=== PATIENT | male | born 1950 | race Caucasian/White ===

== ENCOUNTER 2021-03-24 23:29 | Emergency (ER) | payer MEDICARE, OTHER ==
[2021-03-25] MEDS ORDERED: Acetaminophen 325 MG Tab PO ONE (00:56)
--- NOTE | 2021-03-25 01:00 | EDM.PDOC ---
ED HPI GENERAL MEDICAL PROBLEM - General Chief Complaint: Lower Extremity Injury/Pain Stated Complaint: PAIN IN RIGHT ANKLE Time Seen by Provider: 03/25/21 00:42 Source of Information: Reports: Patient, Family () History Limitations: Reports: No Limitations - History of Present Illness INITIAL COMMENTS - FREE TEXT/NARRATIVE: Mr. Eugene is a very pleasant 70-year-old gentleman who now presents the ED stating that he woke up with pain to the dorsal aspect of his right foot this morning. He believes that his right foot feels warmer to the touch than his left, or at least it did this morning. He has not seen any visible change to his foot, such as swelling or erythema. No known injury, although he was working on his tractor yesterday. No prior similar symptoms. The patient states that he has not iced or taken any medications to treat his symptoms today. The patient has a history of a left lower extremity DVT, on Coumadin. No history of gout. Here in the ED, the patient's initial BP is found to be elevated at 180/91, with slight tachycardia of 101 bpm. He is afebrile, saturating 93% on room air. Appears to be relatively comfortable, in no acute distress. Prior to this morning, the patient denies having a recent fever, chills, sore throat, ear pain, nasal or sinus congestion, cough, dyspnea, chest pain, palpitations, nausea, vomiting, constipation, diarrhea, abdominal pain, urinary symptoms, recent weight gain or weight loss, recent bloody bowel movements or black bowel movements, recent joint aches, headaches, or rashes. The patient's PCP is Dr. Ronaldo Jones. He has received 2 COVID vaccinations. Right Foot Pain Score (Numeric/FACES): 8 - Related Data Allergies Allergy/AdvReac Type Severity Reaction Status Date / Time No Known Allergies Allergy Verified 03/24/21 23:50 Home Meds: Home Meds Docusate Sodium [Colace] 200 mg PO BID 12/22/20 [History] Gabapentin [Neurontin] 300 mg PO BID 12/22/20 [History] Gabapentin [Neurontin] 600 mg PO BEDTIME 12/22/20 [History] Methylcellulose [Citrucel] 1,000 mg PO BID 12/22/20 [History] Multivitamin 1 tab PO DAILY 12/22/20 [History] Warfarin [Coumadin] 5 mg PO MOFR 12/22/20 [History] Warfarin [Coumadin] 7.5 mg PO SUTUWETHSA 12/22/20 [History] atorvaSTATin [Lipitor] 20 mg PO DAILY 12/22/20 [History] metFORMIN HCl [Metformin HCl] 1,000 mg PO DAILY 12/22/20 [History] Omeprazole 20 mg PO DAILY 03/24/21 [History] Past Medical History Cardiovascular History: Reports: Blood Clots/VTE/DVT (LLE DVT), High Cholesterol Gastrointestinal History: Reports: GERD, Hiatal Hernia Endocrine/Metabolic History: Reports: Diabetes, Type II, Obesity/BMI 30+ - Infectious Disease History Infectious Disease History: Reports: Novel Coronavirus - Past Surgical History HEENT Surgical History: Reports: Tonsillectomy GI Surgical History: Reports: Colonoscopy, EGD, Hernia, Inguinal (right) Social & Family History - Tobacco Use Tobacco Use Status *Q: Never Tobacco User Second Hand Smoke Exposure: No - Caffeine Use Caffeine Use: Reports: Coffee, Soda - Alcohol Use Alcohol Use History: Yes Alcohol Use Frequency: Rarely - Recreational Drug Use Recreational Drug Use: No - Living Situation & Occupation Living situation: Reports: , with Spouse, with Family (handicapped son often stays over) Occupation: Retired Review of Systems - Review of Systems Review Of Systems: Comprehensive ROS is negative, except as noted in HPI. ED EXAM, GENERAL - Physical Exam Exam: See Below Exam Limited By: No Limitations General Appearance: Alert, WD/WN, No Apparent Distress Extremities: Other (No visible abnormality to the patient's right foot, compared to the left, such as swelling, erythema, ecchymosis, abrasion, however, the patient has tenderness to palpation of the dorsal aspect of his foot, and that same pain is induced with passive plantar flexion of the foot, but not with passive ) Course - Vital Signs Last Recorded V/S: Last Vital Signs Temp 37.1 C 03/24/21 23:46 Pulse 101 H 03/24/21 23:46 Resp 16 03/24/21 23:46 BP 180/91 H 03/24/21 23:46 Pulse Ox 93 L 03/24/21 23:46 - Orders/Labs/Meds Orders: Active Orders 24 hr Category Date Time Status Foot Comp Min 3V Rt [CR] Stat Exams 03/25/21 00:55 Taken DME for Discharge [COMM] Stat Oth 03/25/21 01:42 Ordered Meds: Medications Discontinued Medications Generic Name Dose Route Start Last Admin Trade Name Joe PRElvis Reason Stop Dose Admin Acetaminophen 650 mg 03/25/21 00:56 03/25/21 01:05 Acetaminophen 325 Mg Tab PO 03/25/21 00:57 650 mg NOW ONE Administration - Re-Assessments/Exams Free Text/Narrative Re-Assessment/Exam: 03/25/21 00:57 As above, the patient woke this morning with right foot pain. He believes it felt warmer than his left foot, although he acknowledges there is no visible abnormality, such as erythema or swelling. No known injury to the foot. No prior similar instances. No home treatment. On examination, the patient is most tender to the dorsal aspect of his foot, made worse with passive plantarflexion, but not with passive dorsiflexion. Oddly, however, his pain is not made worse with active dorsiflexion, but it is with active plantarflexion. I have ordered x-rays to rule out a stress fracture. I placed an ice pack on his foot, and have ordered 600 mg of acetaminophen. I am avoiding NSAIDs, since the patient is on Coumadin. 03/25/21 01:41 4-view radiographs of the right foot appear to demonstrate mild to moderate degenerative joint disease, but no fractures or dislocations. Formal read per the Radiologist pending. I suspect that the patient has strained the extensor tendons in his foot when he was working yesterday. Gout is a possibility, however, the patient says that he has never had gout before, and in most cases, the first episode of gout prese nts as podagra, not whole-foot gout, and the patient definitely does not have podagra. In order to allow the patient to ambulate without continuously stressing his extensor tendons, I will place him into a CAM walker boot. He should ice and elevate his foot when out of the boot. He can take OTC acetaminophen for discomfort. If his symptoms do not improve with in a week or so, I would like him to follow-up with Dr. Segura. Departure - Departure Time of Disposition: 01:48 Disposition: Home, Self-Care 01 Condition: Good Clinical Impression: Extensor tendinitis of foot - Discharge Information *PRESCRIPTION DRUG MONITORING PROGRAM REVIEWED*: Not Applicable *COPY OF PRESCRIPTION DRUG MONITORING REPORT IN PATIENT DARRION: Not Applicable Instructions: Tendinitis, [id number] Referrals: Ronaldo Jones MD [Primary Care Provider] - Amaury Segura MD [Physician] - Forms: ED Department Discharge Additional Instructions: You were seen in the emergency room after waking up with right foot pain this morning. Work-up in the ER included x-rays of your right foot, which showed arthritic changes, but no broken bones or dislocations. Based on your history, physical exam, and ER x-rays, you have most likely strained the extensor tendons on the top of your foot. You have been fitted with a CAM walker boot. Wear this whenever you are walking around. We recommend that you ice and elevate your foot when you are out of the boot. We recommend you take [id number] acetaminophen (Tylenol) as needed for discomfort. If you are still having pain after about a week, please follow-up with the Orthopedic Surgeon Dr. Amaury Segura. If any other problems, please do not hesitate to return to the ER. Sepsis Event Note (ED) - Evaluation Sepsis Screening Result: No Definite Risk - Focused Exam Vital Signs: Vital Signs Temp Pulse Resp BP Pulse Ox 03/24/21 23:46 37.1 C 101 H 16 180/91 H 93 L - My Orders Last 24 Hours: My Active Orders 03/25/21 00:55 Foot Comp Min 3V Rt [CR] Stat 03/25/21 01:42 DME for Discharge [COMM] Stat - Assessment/Plan Last 24 Hours: My Active Orders 03/25/21 00:55 Foot Comp Min 3V Rt [CR] Stat 03/25/21 01:42 DME for Discharge [COMM] Stat
--- NOTE | 2021-03-25 08:46 | CR ---
Right foot: 4 views of the right foot were obtained. Comparison: No prior right foot exam is available. Small plantar spur is seen. Small spur is noted at the attachment of the Achilles tendon to the calcaneus. Slight vascular calcification is seen. Small erosion is noted within the distal second metatarsal head raising the possibility of previous gout. Mild degenerative change is seen within the first MTP joint. No acute fracture or dislocation is seen. Impression: 1. Calcaneal spurs. 2. Small erosion raising the possibility of previous gout within the distal second metatarsal. Please correlate. 3. Mild degenerative change as noted above. Diagnostic code #2
== END 2021-03-25 02:10 | disposition home or self-care (01) ==
LOC: JD.ED 23:29
DX: M77.42 Metatarsalgia, left foot (principal); E78.00 Pure hypercholesterolemia, unspecified; E11.9 Type 2 diabetes mellitus without complications; K21.9 Gastro-esophageal reflux disease without esophagitis; E66.9 Obesity, unspecified; Z68.41 Body mass index [BMI] 40.0-44.9, adult; Z86.718 Personal history of other venous thrombosis and embolism; Z79.01 Long term (current) use of anticoagulants; Z79.899 Other long term (current) drug therapy; Z86.16 Personal history of COVID-19
CPT/HCPCS: 73630; 99283; A9270; 99284

== ENCOUNTER 2021-04-23 07:05 | Day surgery (SDC) | payer MEDICARE, OTHER ==
[2021-04-23] MEDS: Polymyxin B/Trimethoprim 10 ML Bottle EYERT SCH ×4 (07:11→08:36)
[2021-04-23] MEDS: Brimonidine 0.2% Ophth Soln 5 ML Bottle EYERT SCH ×4 (07:15→08:36)
--- NOTE | 2021-04-23 07:16 | PCM.PREANE ---
Preanesthetic Assessment - Procedure Proposed Procedure: right eye cataract - Anesthesia/Transfusion/Family Hx Anesthesia History: Prior Anesthesia Without Reaction Family History of Anesthesia Reaction: No Transfusion History: No Prior Transfusion(s) Intubation History: Unknown - Review of Systems General: No Symptoms Pulmonary: No Symptoms Cardiovascular: No Symptoms Gastrointestinal: No Symptoms Neurological: No Symptoms Other: Reports: Diabetes - Physical Assessment NPO Status Date: 04/22/21 NPO Status Time: 22:30 Vital Signs: 97.4 HR 81 96% 18 189/96 Recheck 166/82 Height: 1.68 m Weight: 122.8 kg ASA Class: 3 Mental Status: Alert & Oriented x3 Airway Class: Mallampati = 2 Dentition: Reports: Normal Dentition, Caries Thyro-Mental Finger Breadths: 3 Mouth Opening Finger Breadths: 3 ROM/Head Extension: Full Lungs: Clear to Auscultation, Normal Respiratory Effort Cardiovascular: Regular Rate, Regular Rhythm, No Murmurs - Allergies Allergies/Adverse Reactions: Allergies Allergy/AdvReac Type Severity Reaction Status Date / Time No Known Allergies Allergy Verified 04/23/21 07:27 - Blood Blood Available: No - Anesthesia Plan Pre-Op Medication Ordered: None - Acknowledgements Anesthesia Type Planned: MAC Pt an Appropriate Candidate for the Planned Anesthesia: Yes Alternatives and Risks of Anesthesia Discussed w Pt/Guardian: Yes Pt/Guardian Understands and Agrees with Anesthesia Plan: Yes PreAnesthesia Questionnaire HEENT History: Reports: Cataract Other HEENT History: Glasses for reading Cardiovascular History: Reports: Blood Clots/VTE/DVT (LLE DVT), High Cholesterol Other Cardiovascular History: DVT (left leg) Respiratory History: Reports: SOB Gastrointestinal History: Reports: GERD, Hiatal Hernia Other Gastrointestinal History: hematochezia, hiatal hernia, hemorrhoids Genitourinary History: Reports: None UTILITY TECHNICIAN History: Reports: None Musculoskeletal History: Reports: Other (See Below) Other Musculoskeletal History: chronic generalized pain Neurological History: Reports: None Psychiatric History: Reports: None Endocrine/Metabolic History: Reports: Diabetes, Type II, Obesity/BMI 30+ Hematologic History: Reports: Anemia, Iron Deficiency Immunologic History: Reports: None Oncologic (Cancer) History: Reports: None Dermatologic History: Reports: None - Infectious Disease History Infectious Disease History: Reports: Novel Coronavirus - Past Surgical History HEENT Surgical History: Reports: Tonsillectomy GI Surgical History: Reports: Colonoscopy, EGD, Hernia, Inguinal (right) - SUBSTANCE USE Tobacco Use Status *Q: Never Tobacco User Tobacco Use Within Last Twelve Months: No Second Hand Smoke Exposure: No Days Per Week of Alcohol Use: 0 Number of Drinks Per Day: 0 Total Drinks Per Week: 0 Recreational Drug Use History: No - HOME MEDS Home Medications: Home Meds Docusate Sodium [Colace] 200 mg PO BID 12/22/20 [History] Gabapentin [Neurontin] 300 mg PO BID 12/22/20 [History] Gabapentin [Neurontin] 600 mg PO BEDTIME 12/22/20 [History] Methylcellulose [Citrucel] 1,000 mg PO BID 12/22/20 [History] Multivitamin 1 tab PO DAILY 12/22/20 [History] Warfarin [Coumadin] 5 mg PO MOFR 12/22/20 [History] Warfarin [Coumadin] 7.5 mg PO SUTUWETHSA 12/22/20 [History] atorvaSTATin [Lipitor] 20 mg PO DAILY 12/22/20 [History] metFORMIN HCl [Metformin HCl] 1,000 mg PO DAILY 12/22/20 [History] Omeprazole 20 mg PO DAILY 03/24/21 [History] - CURRENT (IN HOUSE) MEDS Current Meds: Current Medications Brimonidine Tartrate (Brimonidine 0.2% Ophth Soln 5 Ml Bottle) 0 ml EYERT ASDIRECTED TEODORO Stop: 04/23/21 18:00 Cefuroxime Sodium (Cefuroxime 10 Mg/Ml Syringe) 0 mg EYERT ASDIRECTED TEODORO Stop: 04/23/21 18:00 Lidocaine HCl (Lidocaine 1% Pf 2 Ml Sdv) 0 ml INJECT ASDIRECTED TEODORO Stop: 04/23/21 18:00 Phenylephrine HCl (Phenylephrine 2.5% Ophth Soln 2 Ml Bot) 0 ml EYERT ASDIRECTED TEODORO Stop: 04/23/21 18:00 Pilocarpine HCl (Pilocarpine 4% Ophth Soln 15 Ml Bot) 0 ml EYERT ASDIRECTED TEODORO Stop: 04/23/21 18:00 Polymyxin/Trimethoprim Sulfate (Polymyxin B/Trimethoprim 10 Ml Bottle) 0 ml EYERT ASDIRECTED TEODORO Stop: 04/23/21 18:00 Tetracaine HCl (Tetracaine Hcl/Pf 0.5% 4 Ml Bottle) 0 ml EYEBOTH ASDIRECTED TEODORO Stop: 04/23/21 18:00 Tropicamide (Tropicamide 1% Ophth Soln 15 Ml Bottle) 0 ml EYERT ASDIRECTED TEODORO Stop: 04/23/21 18:00
[2021-04-23] MEDS: Phenylephrine 2.5% Ophth Soln 2 ML Bot EYERT SCH ×6 (07:19→08:28)
[2021-04-23] MEDS: Tropicamide 1% Ophth Soln 15 ML Bottle EYERT SCH ×4 (07:24→07:55)
[2021-04-23] MEDS: Tetracaine HCl/PF 0.5% 4 ML Bottle EYEBOTH SCH ×3 (08:03→08:30)
[2021-04-23] MEDS: Lidocaine 1% PF 2 ML SDV INJECT SCH ×2 (08:23→08:30)
[2021-04-23] MEDS: Cefuroxime 10 MG/ML SYRINGE EYERT SCH ×2 (08:30→08:35)
[2021-04-23] MEDS: Pilocarpine 4% Ophth Soln 15 ML Bot EYERT SCH ×2 (08:30→08:36)
--- NOTE | 2021-04-23 08:37 | PCM48HPAN ---
Post Anesthesia Note - EVALUATION WITHIN 48HRS OF ANESTHETIC Vital Signs in Normal Range: Yes Patient Participated in Evaluation: Yes Respiratory Function Stable: Yes Airway Patent: Yes Cardiovascular Function Stable: Yes Hydration Status Stable: Yes Pain Control Satisfactory: Yes Nausea and Vomiting Control Satisfactory: Yes Mental Status Recovered: Yes Vital Signs: Last Vital Signs Temp 97.3 F 04/23/21 06:59 Pulse 81 04/23/21 06:59 Resp 18 04/23/21 06:59 BP 189/96 H 04/23/21 06:59 Pulse Ox 96 04/23/21 06:59
== END 2021-04-23 08:45 | disposition home or self-care (01) ==
LOC: JD.SDS 07:05
PROVIDERS: ATTEND Ophthalmology
DX: E11.36 Type 2 diabetes mellitus with diabetic cataract (principal); H25.813 Combined forms of age-related cataract, bilateral; H21.81 Floppy iris syndrome; H43.811 Vitreous degeneration, right eye; E78.00 Pure hypercholesterolemia, unspecified; E66.9 Obesity, unspecified; Z68.41 Body mass index [BMI] 40.0-44.9, adult; Z86.16 Personal history of COVID-19; Z79.01 Long term (current) use of anticoagulants; Z79.899 Other long term (current) drug therapy
CPT/HCPCS: 66984; 82947; J0697; C1780

== ENCOUNTER 2021-05-19 07:06 | Day surgery (SDC) | payer MEDICARE, OTHER ==
[2021-05-19] MEDS: Polymyxin B/Trimethoprim 10 ML Bottle EYELF SCH ×4 (07:22→08:32)
[2021-05-19] MEDS: Brimonidine 0.2% Ophth Soln 5 ML Bottle EYELF SCH ×4 (07:27→08:32)
--- NOTE | 2021-05-19 07:27 | PCM.PREANE ---
Preanesthetic Assessment - Anesthesia/Transfusion/Family Hx Anesthesia History: Prior Anesthesia Without Reaction Family History of Anesthesia Reaction: No Transfusion History: Prior Transfusion Without Reaction Intubation History: Unknown - Review of Systems General: Other (anemia, morbid obesity) Pulmonary: No Symptoms Cardiovascular: No Symptoms Gastrointestinal: Other (GERD takes OTC) Neurological: No Symptoms Other: Reports: Diabetes (am glucose 149) - Physical Assessment NPO Status Date: 05/18/21 NPO Status Time: 21:00 Weight: 122.47 kg Mental Status: Alert & Oriented x3 Airway Class: Mallampati = 2 Dentition: Reports: Normal Dentition Thyro-Mental Finger Breadths: 3 Mouth Opening Finger Breadths: 3 ROM/Head Extension: Full Lungs: Clear to Auscultation, Normal Respiratory Effort Cardiovascular: Regular Rate, Regular Rhythm - Lab Values: Laboratory Last Values POC Glucose 149 mg/dL (70-99) H 05/19/21 07:14 - Allergies Allergies/Adverse Reactions: Allergies Allergy/AdvReac Type Severity Reaction Status Date / Time No Known Allergies Allergy Verified 05/18/21 18:22 - Blood Blood Available: No Product(s) Available: None - Anesthesia Plan Pre-Op Medication Ordered: None - Acknowledgements Anesthesia Type Planned: MAC Pt an Appropriate Candidate for the Planned Anesthesia: Yes Alternatives and Risks of Anesthesia Discussed w Pt/Guardian: Yes Pt/Guardian Understands and Agrees with Anesthesia Plan: Yes PreAnesthesia Questionnaire HEENT History: Reports: Cataract Other HEENT History: Glasses for reading Cardiovascular History: Reports: Blood Clots/VTE/DVT (LLE DVT), High Cholesterol Other Cardiovascular History: DVT (left leg) Respiratory History: Reports: SOB Gastrointestinal History: Reports: GERD, Hiatal Hernia Other Gastrointestinal History: hematochezia, hiatal hernia, hemorrhoids Genitourinary History: Reports: None 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 [employer]AU History: Reports: None Musculoskeletal History: Reports: Other (See Below) Other Musculoskeletal History: chronic generalized pain Neurological History: Reports: None Psychiatric History: Reports: None Endocrine/Metabolic History: Reports: Diabetes, Type II, Obesity/BMI 30+ Hematologic History: Reports: Anemia, Iron Deficiency Immunologic History: Reports: None Oncologic (Cancer) History: Reports: None Dermatologic History: Reports: None - Infectious Disease History Infectious Disease History: Reports: Novel Coronavirus - Past Surgical History HEENT Surgical History: Reports: Tonsillectomy GI Surgical History: Reports: Colonoscopy, EGD, Hernia, Inguinal (right) - HOME MEDS Home Medications: Home Meds Docusate Sodium [Colace] 200 mg PO BID 12/22/20 [History] Gabapentin [Neurontin] 300 mg PO BID 12/22/20 [History] Gabapentin [Neurontin] 600 mg PO BEDTIME 12/22/20 [History] Methylcellulose [Citrucel] 1,000 mg PO BID 12/22/20 [History] Multivitamin 1 tab PO DAILY 12/22/20 [History] Warfarin [Coumadin] 5 mg PO MOFR 12/22/20 [History] Warfarin [Coumadin] 7.5 mg PO SUTUWETHSA 12/22/20 [History] atorvaSTATin [Lipitor] 20 mg PO DAILY 12/22/20 [History] metFORMIN HCl [Metformin HCl] 1,000 mg PO DAILY 12/22/20 [History] Omeprazole 20 mg PO DAILY 03/24/21 [History] - CURRENT (IN HOUSE) MEDS Current Meds: Current Medications Brimonidine Tartrate (Brimonidine 0.2% Ophth Soln 5 Ml Bottle) 0 ml EYELF ASDIRECTED TEODORO Stop: 05/19/21 18:00 Cefuroxime Sodium (Cefuroxime 10 Mg/Ml Syringe) 0 mg EYELF ASDIRECTED TEODORO Stop: 05/19/21 18:00 Lidocaine HCl (Lidocaine 1% Pf 2 Ml Sdv) 0 ml INJECT ASDIRECTED TEODORO Stop: 05/19/21 18:00 Phenylephrine HCl (Phenylephrine 2.5% Ophth Soln 2 Ml Bot) 0 ml EYELF ASDIRECTED TEODORO Stop: 05/19/21 18:00 Pilocarpine HCl (Pilocarpine 4% Ophth Soln 15 Ml Bot) 0 ml EYELF ASDIRECTED TEODORO Stop: 05/19/21 18:00 Polymyxin/Trimethoprim Sulfate (Polymyxin B/Trimethoprim 10 Ml Bottle) 0 ml EYELF ASDIRECTED TEODORO Stop: 05/19/21 18:00 Tetracaine HCl (Tetracaine Hcl/Pf 0.5% 4 Ml Bottle) 0 ml EYEBOTH ASDIRECTED TEODORO Stop: 05/19/21 18:00 Tropicamide (Tropicamide 1% Ophth Soln 15 Ml Bottle) 0 ml EYELF ASDIRECTED TEODORO Stop: 05/19/21 18:00
[2021-05-19] MEDS: Phenylephrine 2.5% Ophth Soln 2 ML Bot EYELF SCH ×6 (07:30→08:28)
[2021-05-19] MEDS: Tropicamide 1% Ophth Soln 15 ML Bottle EYELF SCH ×4 (07:34→07:58)
[2021-05-19] MEDS: Tetracaine HCl/PF 0.5% 4 ML Bottle EYEBOTH SCH ×3 (08:02→08:28)
[2021-05-19] MEDS: Lidocaine 1% PF 2 ML SDV INJECT SCH ×2 (08:22→08:28)
[2021-05-19] MEDS: Cefuroxime 10 MG/ML SYRINGE EYELF SCH ×2 (08:28→08:31)
[2021-05-19] MEDS: Pilocarpine 4% Ophth Soln 15 ML Bot EYELF SCH ×2 (08:29→08:32)
--- NOTE | 2021-05-19 08:34 | PCM48HPAN ---
Post Anesthesia Note - EVALUATION WITHIN 48HRS OF ANESTHETIC Vital Signs in Normal Range: Yes Patient Participated in Evaluation: Yes Respiratory Function Stable: Yes Airway Patent: Yes Cardiovascular Function Stable: Yes Hydration Status Stable: Yes Pain Control Satisfactory: Yes Nausea and Vomiting Control Satisfactory: Yes Mental Status Recovered: Yes Vital Signs: Last Vital Signs Temp 36.4 C 05/19/21 07:59 Pulse 83 05/19/21 07:59 Resp 16 05/19/21 07:59 BP 172/92 H 05/19/21 07:59 Pulse Ox 94 L 05/19/21 07:59
== END 2021-05-19 08:40 | disposition home or self-care (01) ==
LOC: JD.SDS 07:06
PROVIDERS: ATTEND Ophthalmology
DX: E11.36 Type 2 diabetes mellitus with diabetic cataract (principal); H25.812 Combined forms of age-related cataract, left eye; H21.81 Floppy iris syndrome; H43.811 Vitreous degeneration, right eye; E78.00 Pure hypercholesterolemia, unspecified; E66.9 Obesity, unspecified; Z98.890 Other specified postprocedural states; Z79.899 Other long term (current) drug therapy; Z96.1 Presence of intraocular lens; Z68.41 Body mass index [BMI] 40.0-44.9, adult
CPT/HCPCS: 66984; 82947; J0697; C1780